=== PATIENT | female | born 1945 | race Caucasian/White ===

== ENCOUNTER 2017-01-13 10:01 | Day surgery (SDC) | payer MEDICARE, OTHER ==
[2017-01-13] MEDS ORDERED: LIDOCAINE 2% MDV (20MG/ML) 20ML VIAL IV ONE (15:31)
[2017-01-13] MEDS ORDERED: FENTANYL PF 100MCG/2ML VIAL IV ONE (15:31)
[2017-01-13] MEDS ORDERED: PROPOFOL 10 MG/ML VIAL IV ONE (15:31)
--- NOTE | 2017-01-16 13:04 | Operative Note ---
DATE OF SURGERY: 01/13/2017 REFERRING PHYSICIAN: Jan Harmon M.D. PROCEDURE: ESOPHAGOGASTRODUODENOSCOPY with multiple biopsies. Surgeon: Fermin Archuleta D.O. Indication: Epigastric pain and prior history of peptic ulcer disease years ago. The patient may also have a component of gastroparesis related to diabetes. Intravenous sedation was administered by the Department of Anesthesiology and included Diprivan titrated to effect. PROCEDURE: Following informed consent from this alert individual, including a discussion of the risks and benefits of the procedure and an opportunity for the patient to ask questions, the patient was in the left lateral decubitus position. The Olympus GIF-180 video endoscope was inserted into the esophagus without resistance. The proximal esophagus had a normal appearance with normal folds and distensibility. The mid-esophagus likewise free from changes. The GE junction revealed a somewhat slightly irregular Z-line but no ulcerations or erosions were seen. Biopsies from this site were taken to rule out the remote possibility of short segment Lawson esophagus. The stomach was entered. There was a small amount of bilious liquid noted within the stomach. There were some mild erosive changes noted in the antrum of the stomach with some small, raised erosions. Biopsies from the stomach were obtained from the antrum and proximal stomach to evaluate for Helicobacter pylori. There were no nila ulcerations seen. Pylorus was patent. Duodenal bulb, sweep and descending duodenum were examined in a serial fashion and found to be normal. The endoscope was then withdrawn back in the body of the stomach. Retroflexion accomplished following air insufflation failed to demonstrate any additional changes. The endoscope was straightened and withdrawn. The patient tolerated the procedure well and was returned to the Recovery Area in stable condition. IMPRESSIONS: 1. Erosive antral gastritis, biopsies taken from the stomach. 2. Slightly irregular Z-line, biopsies taken. RECOMMENDATIONS: The patient will continue on acid blockade therapy which she claims has offered from clinical improvement. Further recommendations might be forthcoming pending results of pathology obtained today. Follow up with all so be with Dr. Harmon. Fermin Archuleta, DO CC: JAN HARMON MD, [facility]
== END 2017-01-13 12:20 | disposition home or self-care (01) ==
LOC: HOP 10:01
PROVIDERS: ATTEND Internal Medicine Gastroenterology
DX: K29.50 Unspecified chronic gastritis without bleeding (principal); K31.89 Other diseases of stomach and duodenum; K20.8 Other esophagitis; I10 Essential (primary) hypertension; I48.92 Unspecified atrial flutter; Z95.0 Presence of cardiac pacemaker
CPT/HCPCS: 43239; 00740; 88305; 88313; J3010

== ENCOUNTER 2017-03-11 14:42 | Observation (INO) | payer MEDICARE, OTHER ==
[2017-03-11] MEDS ORDERED: 0.9 % SODIUM CHLORIDE 1000ML 1,000 ML IV PRN (15:02)
[2017-03-11 16:00] LABS: ANION GAP 14.6 (7-16); BLOOD UREA NITROGEN 14 mg/dL (7-17); CARBON DIOXIDE 23.4 mmol/L (22-30); CREATININE 0.8 mg/dL (0.52-1.04); EST GLOMERULAR FILTRATION RATE > 60 ml/min; GLUCOSE,RANDOM 191 mg/dL (70-110)
[2017-03-11 16:26] LABS: BASO % 0.5 % (0-6); EOS % 3.1 % (0-6); GRAN % 65.5 % (47-80); HEMATOCRIT 42.8 % (35.0-47.0); HEMOGLOBIN 14.9 gm/dl (11.6-16.0); LYMPH % 25.5 % (16-45); MEAN CELL VOLUME 89.5 fl (81-97); MEAN CORPUSCULAR HEMOGLOBIN 31.2 pg (27-33); MEAN CORPUSCULAR HGB CONC 34.8 g/dl (32-36); MEAN PLATELET VOLUME 10.3 fl (7.4-10.4); MONO % 5.4 % (0-9); PLATELET COUNT 221 K/uL (130-400); RED BLOOD COUNT 4.78 M/uL (3.80-5.40); RED CELL DISTRIBUTION WIDTH 13.3 % (11.5-14.5); WHITE BLOOD COUNT W/O DIFF 9.4 K/uL (4.2-12.2)
[2017-03-11] MEDS ORDERED: TEMAZEPAM 15 MG CAPSULE PO PRN (18:02)
[2017-03-11] MEDS ORDERED: ACETAMINOPHEN 500 MG TABLET PO PRN (18:02)
[2017-03-11] MEDS ORDERED: AL HYDROX/MAG HYDROX 30ML UD PO PRN (18:02)
[2017-03-11] MEDS ORDERED: LEVEMIR FLEXTOUCH 100 UNIT/ML INSULIN PEN SQ SCH (22:00)
[2017-03-11] MEDS ORDERED: ATORVASTATIN 20 MG TABLET PO SCH (22:00)
[2017-03-11] MEDS ORDERED: GABAPENTIN 300 MG CAPSULE PO SCH (22:00)
[2017-03-11] MEDS ORDERED: AMLODIPINE BESYLATE 5MG TAB PO SCH (22:00)
[2017-03-11] MEDS: APIXABAN 5MG TABLET PO SCH (22:16)
[2017-03-11] MEDS: METOPROLOL TART 25 MG TABLET PO SCH (22:51)
[2017-03-12] MEDS ORDERED: PANTOPRAZOLE SODIUM 40 MG TABLET PO SCH (07:00)
[2017-03-12] MEDS ORDERED: NOVOLOG FLEXPEN (INSULIN ASPART) 100 UNITS/ML SQ SCH (07:45)
[2017-03-12] MEDS: METOPROLOL TART 25 MG TABLET PO SCH (09:10)
[2017-03-12] MEDS: APIXABAN 5MG TABLET PO SCH (09:10)
[2017-03-12] MEDS ORDERED: HYDROCHLOROTHIAZIDE 12.5 MG CAPSULE PO SCH (10:00)
[2017-03-12] MEDS ORDERED: LISINOPRIL 20 MG TABLET PO SCH (10:00)
--- NOTE | 2017-03-12 10:33 | Discharge Note ---
VTE H&P Assessment - Risk for VTE Risk for VTE: No Risk Level: Moderate Risk Assessment Date: 03/11/17 Risk Assessment Time: 16:15 VTE Orders Placed or Will Be Placed: Yes Discharge Medications - Discharge Medications Prescriptions: Metoprolol Tartrate [Lopressor] 25 mg PO BID #60 tab Home Medications: Ambulatory Orders Insulin Glargine,Hum.rec.anlog [Lantus] 50 units SQ QHS 12/22/14 [Last Taken 09/24] Multivit-Min/FA/Lycopene/Lut [Centrum Silver Tablet] 1 tab PO DAILY 12/22/14 [ Last Taken 07/21/15] Atorvastatin Calcium 40 mg PO QHS 07/22/15 [Last Taken 07/21/15] Apixaban [Eliquis] 5 mg PO BID tab 08/07/16 [Last Taken Unknown] Insulin Aspart [Novolog Flexpen] 10 unit SQ TID pen.injctr 08/07/16 [Last Taken Unknown] Gabapentin [Neurontin] 300 mg PO QHS 12/26/16 [Last Taken Unknown] Lisinopril 20 mg PO DAILY 12/26/16 [Last Taken Unknown] Amlodipine Besylate [Norvasc] 5 mg PO QHS tab 03/12/17 [Last Taken Unknown] Apixaban [Eliquis] 5 mg PO BID tablet 03/12/17 [Last Taken Unknown] Gabapentin [Neurontin] 300 mg PO QHS capsule 03/12/17 [Last Taken Unknown] Insulin Aspart [Novolog Flexpen] 10 unit SQ TIDINS ml 03/12/17 [Last Taken Unknown] Metoprolol Tartrate [Lopressor] 25 mg PO BID #60 tab 03/12/17 [Last Taken Unknown] Discharge Note - Date Date of Discharge Note: 03/12/17 Disposition: Home, Self-Care Condition: (1) Good Additional Instructions: Follow up with Dr. Mariaa jain at [facility] specialty clinic follow up with Dr. Harmon in one to two weeks. Do not restart sotolol
--- NOTE | 2017-03-12 12:54 | History and Physical Report ---
DATE OF ADMISSION: 03/11/2017 CHIEF COMPLAINT: Prolonged QT. HISTORY OF CHIEF COMPLAINT: This 72-year-old female was in Dr. Bisi Cadet's specialty clinic office at [facility] and the QT was prolonged, most likely secondary from medications. His medications were stopped, his sotalol and Rythmol (propafenone). Dr. Bisi Cadet called me and said would I monitor her while she is in observation for 24-48 hours to have her QT come back into the normal range, and I agreed to monitoring her while she was in the hospital in observation. MEDICAL HISTORY: Paroxysmal atrial fibrillation, essential hypertension, present of cardiac pacemaker. She has had a history of a cardiomyopathy which has resolved after her rhythm was controlled. SURGICAL HISTORY: She has had a heart catheter which was showing no coronary artery disease. CURRENT MEDICATIONS: 1. Omeprazole 20 mg daily. 2. Lisinopril/hydrochlorothiazide 20/12.5 once daily. 3. Eliquis 5 mg b.i.d. 4. Lantus 50 units q.h.s. 5. Vitamin D 50,000 units once a week. She finished her last dose of that. 6. Amlodipine 5 mg at h.s. 7. Gabapentin 300 mg at h.s. 8. She uses Humalog 10-12 units before each meal 3 times a day. 9. Atorvastatin 40 mg at h.s. 10. Calcium with vitamin D once a day. 11. Lutein vitamins once a day. 12. Multiple vitamins once a day. 13. Fish oil 1000 mg 1 b.i.d. ALLERGIES: DEMEROL. SOCIAL HISTORY: Former cigarette smoker, quit in 1969. No alcohol or drug use. FAMILY HISTORY: Father and mother have hypertension and grandparents have hypertension. Grandparents have heart disease and diabetes. Stroke for father, mother, and grandparents. SYSTEMS REVIEW: HEENT: No upper respiratory infection symptoms, cough, cold, or congestion. Cardiovascular: See chief complaint. She has had some problems with atrial fibrillation and palpitations in the past but has been much better since she has been on these medications; however, prolonged QT has caused her to be placed in the hospital for observation to adjust her medications. Respiratory: She denies being short of breath, cough, cold, or congestion. Gastrointestinal: No nausea, vomiting, diarrhea, black stools, or bloody stools. Genitourinary: No dysuria, hematuria, frequency, or burning on urination. Musculoskeletal: Moving all 4 extremities. No joint abnormalities. Neurological: No CVA, paralysis, or paresthesias. Endocrine: She has diabetes mellitus, on Lantus insulin and Humalog. Integument: No rash, ulcerative change, or yellow skin. PHYSICAL EXAMINATION: VITAL SIGNS: Height 5 feet 2 inches, weight 172 pounds. Temperature 97.8, pulse 106, blood pressure 125/82, respiratory rate 18, pulse ox 93% on room air. HEENT: Pupils are equal, round, and reactive to light and accommodation. Extraocular movements are intact. Throat is clear. Nose is clear. Tympanic membranes are hauser. NECK: Supple. No jugular venous distention. No hepatojugular reflux. No carotid bruits. Thyroid is smooth. CARDIOVASCULAR: Irregular rate. She has a pacemaker that is firing on the monitor periodically. RESPIRATORY: Clear to auscultation. Breath sounds equal bilaterally. ABDOMEN: Soft, nontender. No hepatosplenomegaly. No tenderness. Bowel sounds are active. No bruits. EXTREMITIES: No pitting edema. No cyanosis, no clubbing. Full range of motion, peripheral pulses good. BREASTS/GYNECOLOGICAL/RECTAL: Exams deferred. NEUROLOGIC: Cranial nerves II-XII intact. No gross defects. Sensation normal, strength normal, deep tendon reflexes equal bilaterally. Babinski negative. MENTAL STATUS: Alert and oriented x3. IMPRESSION: 1. Prolonged QT. 2. Intermittent atrial fibrillation. 3. Diabetes mellitus, on Lantus insulin. 4. Hypertension. 5. Cardiac pacemaker. 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 Stop the sotalol, which Dr. Bisi Cadet has already stopped. Stop the Rythmol. We will add back the metoprolol tartrate 25 mg b.i.d. because her rate is creeping up. It is around 100 mg to 110 mg twice a day. Discussed the case with Dr. Bisi Cadet. She is to follow up with Dr. Bisi Cadet on Friday here at the specialty clinic and he has instructed her when to restart her medications. [facility]
--- NOTE | 2017-03-12 12:55 | Discharge Summary ---
DATE OF ADMISSION: 03-11-2017 DATE OF DISCHARGE: 03/12/2017 ATTENDING PHYSICIAN: Nico Enrique D.O. DISCHARGE DIAGNOSES: 1. Prolonged QT interval. 2. Atrial fibrillation. 3. Cardiac pacemaker. 4. Diabetes mellitus, insulin dependent. 5. Hypertension. REASON FOR HOSPITALIZATION: This 72-year-old female was seen in the cardiac clinic by Dr. Bisi Cadet at [facility]. Her QT length was prolonged to 594. Because of this, Dr. Cadet wanted her admitted to the hospital for cardiac monitoring and stopping and adjusting her medications. She is currently on Eliquis 5 mg b.i.d. and she has had atrial fibrillation on and off. 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 She has had cardiomyopathy with her atrial fibrillation with an ejection fraction that was low which came back up after her rhythm was corrected. Discussed the case with Dr. Bisi Cadet. SIGNIFICANT TESTS: The EKG, as stated, had a QT prolongation of 0.594. The repeat EKG today, the QT has dropped down to 374, calculated QT is 468. She has gone into atrial fibrillation. She has T-wave inversion in IV, V and and currently she feels fine even though she is in atrial fibrillation. No palpitations or symptoms. Cardiac monitoring is showing atrial fibrillation. LABORATORY: WBC was 9400, hemoglobin was 14.9. Potassium was 4.0, sodium was 143, chloride was 105, BUN was 14, creatinine was 0.8. Her sugars running in the reasonable range. Magnesium was 1.8, calcium was 9.4. THERAPY PROVIDED: Cardiac monitoring, observation, IV at [facility]. CONDITION AT DISCHARGE: Improved. Her QT has improved, under 500. We restarted her metoprolol tartrate 25 mg b.i.d. because her heart rate was running 100 to 110. DISCHARGE INSTRUCTIONS: Follow up with Dr. Bisi Cadet on Friday in the Specialty Clinic at [facility]. She is to restart her meds as described by Dr. Bisi Cadet. She is starting her metoprolol tartrate today. She is also starting Rythmol on Friday and seeing Dr. Bisi Cadet on Friday. Any difficulties , return to the emergency department for further evaluation. [facility] [place]
== END 2017-03-12 12:07 | disposition home or self-care (01) ==
LOC: MEDSURG 14:44
PROVIDERS: ADMIT Emergency Medicine; ATTEND Emergency Medicine
DX: I45.81 Long QT syndrome (principal); I48.91 Unspecified atrial fibrillation; Z79.01 Long term (current) use of anticoagulants; E11.9 Type 2 diabetes mellitus without complications; Z79.4 Long term (current) use of insulin; Z95.0 Presence of cardiac pacemaker
CPT/HCPCS: 83735; 85025; 80048; 36416 ×2; 82948 ×2; 93005 ×2; G0378 ×2; J1815 ×2; J3490 ×2

== ENCOUNTER 2017-03-25 12:05 | Day surgery (SDC) | payer MEDICARE, OTHER ==
[2017-03-25 12:44] LABS: BASO % 0.6 % (0-6); GRAN % 59.6 % (47-80); HEMOGLOBIN 15.2 gm/dl (11.6-16.0); LYMPH % 29.1 % (16-45); MEAN CELL VOLUME 91.5 fl (81-97); MEAN CORPUSCULAR HEMOGLOBIN 30.9 pg (27-33); MEAN CORPUSCULAR HGB CONC 33.8 g/dl (32-36); MEAN PLATELET VOLUME 10.5 fl (7.4-10.4); MONO % 7.7 % (0-9); PLATELET COUNT 234 K/uL (130-400); RED BLOOD COUNT 4.92 M/uL (3.80-5.40); RED CELL DISTRIBUTION WIDTH 14.4 % (11.5-14.5); WHITE BLOOD COUNT W/O DIFF 10.5 K/uL (4.2-12.2)
[2017-03-25 12:57] LABS: INR 1.1; PROTHROMBIN TIME (PATIENT) 12.4 SECONDS (9.5-12.1)
[2017-03-25 13:58] LABS: ALB/GLOB RATIO 1.3 (1.1-1.8); ALBUMIN 3.8 gm/dL (3.5-5.0); ALKALINE PHOSPHATASE 89 U/L (38-126); ALT/SGPT 39 U/L (9-52); AST/SGOT 28 U/L (14-36); BLOOD UREA NITROGEN 18 mg/dL (7-17); CREATININE 0.9 mg/dL (0.52-1.04); EST GLOMERULAR FILTRATION RATE > 60 ml/min; GLUCOSE,RANDOM 135 mg/dL (70-110); TOTAL PROTEIN 6.8 gm/dL (6.3-8.2)
[2017-03-25] MEDS ORDERED: SILVER SULFADIAZINE 25 GM CREAM TOP ONE (14:00)
[2017-03-25] MEDS ORDERED: PROPOFOL 10 MG/ML VIAL IV ONE (14:00)
--- NOTE | 2017-04-01 15:50 | Operative Note ---
DATE OF SURGERY: 03/25/2017 Surgeon: Sandor Cadet MD PROCEDURE: Cardioversion report. Indication: Persistent atrial fibrillation. DESCRIPTION OF PROCEDURE: The patient was brought into the cardioversion suite in a fasting state. Defibrillation paddles were applied in the anteroposterior position. Anesthesia was administered, and synchronized direct current of 50 joules of energy was initially used which was unsuccessful and then 100 joules biphasic energy was used which was also unsuccessful. A third attempt with 200 joules of biphasic energy was used and even that was not successful in converting her into sinus rhythm. The patient was hemodynamically stable after the cardioversion and we did not attempt further attempts at cardioverting her. IMPRESSION: Unsuccessful attempt at electrical synchronized cardioversion. The patient will be started on dofetilide in the near future and after she is loaded with the entire medication, we will try to cardiovert her again. The patient will be continued on Eliquis 5 mg b.i.d. for CVA prophylaxis. Sandor Cadet MD CC: TRIXIE ROSALES MD, [facility]
== END 2017-03-25 15:05 | disposition home or self-care (01) ==
LOC: SUR 12:05
PROVIDERS: ATTEND Internal Medicine
DX: I48.1 Persistent atrial fibrillation (principal); I50.32 Chronic diastolic (congestive) heart failure; Z95.0 Presence of cardiac pacemaker
CPT/HCPCS: 36416; 80053; 82948; 83036; 85025; 85610; 93005

== ENCOUNTER 2017-03-29 09:01 | Inpatient (IN) | payer MEDICARE, OTHER ==
[2017-03-29 09:51] LABS: BASO % 0.5 % (0-6); GRAN % 65.2 % (47-80); HEMATOCRIT 42.7 % (35.0-47.0); LYMPH % 23.1 % (16-45); MEAN CORPUSCULAR HEMOGLOBIN 29.9 pg (27-33); MEAN CORPUSCULAR HGB CONC 32.8 g/dl (32-36); MEAN PLATELET VOLUME 10.1 fl (7.4-10.4); MONO % 8.2 % (0-9); PLATELET COUNT 230 K/uL (130-400); RED BLOOD COUNT 4.69 M/uL (3.80-5.40); RED CELL DISTRIBUTION WIDTH 13.6 % (11.5-14.5); WHITE BLOOD COUNT W/O DIFF 8.3 K/uL (4.2-12.2)
[2017-03-29 10:00] LABS: ANION GAP 11.1 (7-16); BLOOD UREA NITROGEN 15 mg/dL (7-17); CARBON DIOXIDE 23.9 mmol/L (22-30); CREATININE 0.8 mg/dL (0.52-1.04); EST GLOMERULAR FILTRATION RATE > 60 ml/min; GLUCOSE,RANDOM 297 mg/dL (70-110)
[2017-03-29] MEDS ORDERED: DOFETILIDE 500 MCG PO SCH (10:00)
--- NOTE | 2017-03-29 11:43 | History & Physical ---
History of Present Illness - Date of Service Date of Service for History & Physical: 03/30/17 - History of Present Illness Admitting Diagnosis: Atrial Fibrillation with Tikosyn trial History of Present Illness: 72 yo female admitted w/ cc of symptomatic atrial fibrillation. PMHx of afib, presence of cardiac pacemaker, diastolic HF, essential htn, arrhythmia sinus bradycardia, type 2 diabetes, peripheral neuropathy, GERD, and asthma. Patient admitted to the floor by Dr. Cadet cardiology for monitoring w/ anti arrhythmic initiation. Patient will be started on Tikosyn w/ plan for cardioversion on Friday with Dr. Cadet. CBC, CMP, magnesium level ordered. Patient placed on Telemetry w/ EKG prior to Tikosyn initiation. Patient placed for further medical management. PCP: Dr. Harmon 03/30/17: pt lying in bed comfortably. she denies any cp, sob, dizziness or lightheadedness. slight headache she believes is related to lack of sleep. Normal PO intake. Normal GI/ function. No additional concerns at this time. Dr Cadet has been working with the nurses to dose pt's Tikosyn appropriately. Review of Systems Constitutional: Denies: Chills, Fever, Weakness Respiratory: Denies: Cough, Dyspnea, Wheezes Cardiovascular: Reports: Dyspnea on exertion. Denies: Chest pain, Edema, Palpitations Endocrine: Denies: Fatigue Gastrointestinal: Denies: Abdominal pain, Diarrhea, Hematochezia, Nausea, Vomiting Skin: Denies: Change in color, Rash Neurological: Denies: Confusion, Headache, Weakness Psychiatric: Denies: Anxiety, Depression Hematological/Lymphatic: Denies: Anemia, Easy bruising Past Medical History - SOCIAL HISTORY Smoking Status: Former smoker - RESPIRATORY Hx Respiratory Disorders: Yes Hx Asthma: Yes (good control with meds) Hx Pneumonia: Yes Hx Sleep Apnea: Yes Hx of CPAP: Yes - CARDIOVASCULAR Hx Cardio Disorders: Yes Hx Abnormal EKG: Yes Hx Cardiac Cath: Yes (18 months ago) Hx CHF: Yes Hx Edema: Yes (feet/ankles right worse in PM) Hx Hypertension: Yes Hx Irregular Heartbeat: Yes (h/o afib) Hx Palpitations: Yes (per pt for 3 years) Hx Pacemaker/Defib: Yes (-2015) 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 - NEURO Hx Neuro Disorders: Yes Hx Headaches: Yes Hx Neuropathy: Yes (leg neuropathy- Gabapentin helps) Comment:: balance issues due to familiar tremors in body - GI Hx GI Disorders: Yes Hx Reflux: Yes Hx Ulcer: Yes (duodenal ulcer; in 20s) Hx Wt Loss/Wt Gain: Yes (23 lbs loss-dieting over last year) Hx of Polyps: Yes Comment:: hx ibs and constipation - Hx Genitourinary Disorders: Yes Hx Kidney Stones: Yes Comment:: post menopausal - ENDOCRINE Hx Endocrine Disorders: Yes Hx Diabetes: Yes (insulin dependent) Hx Thyroid Disease: No Comment:: fbs 130 - MUSCULOSKELETAL Hx Musculoskeletal Disorders: Yes Hx Arthritis: Yes Hx Osteoporosis: Yes - PSYCH Hx Psych Problems: Yes Hx Anxiety: Yes (due to illness) - HEMATOLOGY/ONCOLOGY Hx Hematology/Oncology Disorders: Yes Hx Anemia: Yes (younger age) Hx Bruising: Yes (on blood thinner) Comment:: on Eliquis for past 4 months. Family Medical History Hx Alcohol Use: Children Hx Anxiety: Children Hx Cancer: Children Hx Depression: Children Hx Diabetes: Grandparents Hx Heart Disease: Grandparents Hx HTN: Father, Mother, Grandparents Hx Resp Disorders: Father, Grandparents Hx Stroke: Father, Mother, Grandparents H&P Meds/Allergies - Allergies Allergies: Allergies Allergy/AdvReac Type Severity Reaction Status Date / Time meperidine Allergy Unknown PT UNSURE Verified 12/26/16 15:18 OF REACTION Opioids-Meperidine and Allergy Unknown PT UNSURE Verified 12/26/16 15:18 Related OF REACTION [Opioids-Meperidine & Related] - Home Medications Home Medications Medication Instructions Recorded Confirmed Last Taken Insulin Glargine,Hum.rec.anlog 50 units SQ QHS 12/22/14 03/29/17 07/21/15 [Lantus] Multivit-Min/FA/Lycopene/Lut 1 tab PO DAILY 12/22/14 03/29/17 07/21/15 [Centrum Silver Tablet] Atorvastatin Calcium 40 mg PO QHS 07/22/15 03/29/17 07/21/15 Gabapentin [Neurontin] 300 mg PO QHS 12/26/16 03/29/17 Unknown Apixaban [Eliquis] 5 mg PO DAILY 03/29/17 03/29/17 Unknown Lisinopril/Hydrochlorothiazide 1 tab PO DAILY 03/29/17 03/29/17 Unknown [Lisinopril-Hctz 20-12.5 mg Tab] Metoprolol Tartrate [Lopressor] 50 mg PO BID 03/29/17 03/29/17 Unknown Omeprazole [Prilosec] 20 mg PO DAILY 03/29/17 03/29/17 Unknown Previous Rx's Medication Instructions Recorded Insulin Aspart [Novolog Flexpen] 10 unit SQ TIDINS ml 03/12/17 - Active Medications Active Medications: Current Medications Apixaban (Eliquis) 5 mg PO BID [facility] Atorvastatin Calcium (Lipitor) 40 mg PO QHS [facility] Dofetilide (Tikosyn) 500 mcg PO Q12H [facility] Last Admin: 03/29/17 10:44 Dose: 500 mcg Gabapentin (Neurontin) 300 mg PO 1900 [facility] Hydrochlorothiazide (Hctz 12.5mg) 12.5 mg PO DAILY [facility] Lisinopril (Zestril) 20 mg PO DAILY [facility] Metoprolol Tartrate (Lopressor) 50 mg PO BID [facility] Pantoprazole Sodium (Protonix) 40 mg PO DAILYAC [facility] Patient Own Med: (Lantus Vial) 50 each SC QHS [facility] Patient Own Med: (Humalog Kwikpen) 0 each SC TIDINS [facility] PRN Reason: Protocol Results - Labs Result Diagrams: 03/29/17 09:26 03/29/17 09:26 Labs Last 24 Hours: Laboratory Results - last 24 hr 03/29/17 03/29/17 03/29/17 09:26 09:26 09:43 WBC 8.3 RBC 4.69 Hgb 14.0 Hct 42.7 MCV 91.0 MCH 29.9 MCHC 32.8 RDW 13.6 Plt Count 230 MPV 10.1 Gran % 65.2 Lymphocytes % 23.1 Monocytes % 8.2 Eosinophils % 3.0 Basophils % 0.5 Sodium 137 Potassium 4.1 Chloride 102 Carbon Dioxide 23.9 Anion Gap 11.1 BUN 15 Creatinine 0.8 Estimated GFR > 60 Random Glucose 297 H Calcium 8.9 Magnesium 1.5 L VTE H&P Assessment - Risk for VTE Risk for VTE: Yes Risk Level: High Risk Assessment Date: 03/29/17 Risk Assessment Time: 10:00 VTE Orders Placed or Will Be Placed: Yes Plan - Inpatient Certification Inpatient Certification: Admit to inpatient care: Based on my medical assessment, after consideration of patient's risk factors (age, co-morbidities and patient presenting symptoms and acuity), I expect that this patient will remain in the hospital greater than or equal to two midnights and that the services needed warrant inpatient care because: Patient Risk Factors: [CHF, symptomatic afib, arrhythma, cardiomyopathy] Estimated length of stay: [3-4 nights] The patient may reasonably be expected to be discharged or transferred to a hospital within 96 hours after admission to [facility]. Services needed: [close cardiac monitoring, initiation of new po medication, telemetry, labs, ekg, vital signs regularly] Post hospital care (if known): [home, self care] I certify that my determination is in accordance with my understanding of Medicare requirements for reasonable and necessary inpatient services. 03/29/17 11:48 - Detailed Diagnosis and Plan (1) Atrial fibrillation with rapid ventricular response Current Visit: No Status: Acute Base Code: I48.91 - UNSPECIFIED ATRIAL FIBRILLATION Comment: 03/30/17: 72 yo female admitted with symptomatic atrial fibrillation. - initiate Tikosyn as requested by Dr. Cadet - plan for cardioversion Friday. - PBC, renal function, magnesium level - EKG prior to medications and 2 hours after each dose - vital signs q 15 minutes x 1 hours, then q 2 hours - if Qtc > 500 msec, contact Dr. Cadet immediately - telemetry - monitor for any cp, dizziness, heart palpitations, sob (2) DVT prophylaxis Current Visit: Yes Status: Acute Base Code: [id number] - Comment: 03/30/17: high risk (age, decreased mobility, atrial fib) - continue Eliquis 5 mg po daily (3) Full code status Current Visit: Yes Status: Acute Base Code: Z78.9 - OTHER SPECIFIED HEALTH STATUS Comment: 03/30/17: pt is full code (4) Diabetes Current Visit: Yes Status: Acute Base Code: E11.9 - TYPE 2 DIABETES MELLITUS WITHOUT COMPLICATIONS Comment: 03/30/17: continue home medications. accu check achqs
[2017-03-29] MEDS: PATIENT OWN MED: HUMALOG KWIKPEN SC SCH ×2 (12:33→17:38)
[2017-03-29] MEDS ORDERED: MAGNESIUM SULFATE 16 MEQ in 0.9 % SODIUM CHLORIDE 100ML 100 ML IV ONE (13:30)
[2017-03-29] MEDS: GABAPENTIN 300 MG CAPSULE PO SCH (19:01)
[2017-03-29] MEDS: APIXABAN 5MG TABLET PO SCH (22:26)
[2017-03-29] MEDS: METOPROLOL TART 50 MG TABLET PO SCH (22:26)
[2017-03-29] MEDS: ATORVASTATIN 20 MG TABLET PO SCH (22:26)
[2017-03-29] MEDS: DOFETILIDE 500 MCG PO SCH (22:27)
[2017-03-29] MEDS: LANTUS SC SCH (22:27)
[2017-03-30] MEDS: PANTOPRAZOLE SODIUM 40 MG TABLET PO SCH (06:45)
[2017-03-30] MEDS: PATIENT OWN MED: HUMALOG KWIKPEN SC SCH ×3 (08:08→17:28)
[2017-03-30] MEDS: HYDROCHLOROTHIAZIDE 12.5 MG CAPSULE PO SCH (09:56)
[2017-03-30] MEDS: APIXABAN 5MG TABLET PO SCH ×2 (09:56→22:07)
[2017-03-30] MEDS: METOPROLOL TART 50 MG TABLET PO SCH ×2 (09:56→22:07)
[2017-03-30] MEDS: LISINOPRIL 20 MG TABLET PO SCH (09:56)
[2017-03-30] MEDS: DOFETILIDE 500 MCG PO SCH ×4 (10:08→22:05)
[2017-03-30] MEDS ORDERED: ACETAMINOPHEN 500 MG TABLET PO PRN (18:03)
[2017-03-30] MEDS: GABAPENTIN 300 MG CAPSULE PO SCH (18:16)
[2017-03-30] MEDS: ATORVASTATIN 20 MG TABLET PO SCH (22:06)
[2017-03-30] MEDS: LANTUS SC SCH (22:12)
[2017-03-31 06:18] LABS: ANION GAP 6.1 (7-16); BLOOD UREA NITROGEN 16 mg/dL (7-17); CARBON DIOXIDE 26.9 mmol/L (22-30); CREATININE 0.8 mg/dL (0.52-1.04); EST GLOMERULAR FILTRATION RATE > 60 ml/min; GLUCOSE,RANDOM 153 mg/dL (70-110)
[2017-03-31] MEDS: PANTOPRAZOLE SODIUM 40 MG TABLET PO SCH (07:01)
[2017-03-31] MEDS: PATIENT OWN MED: HUMALOG KWIKPEN SC SCH ×3 (08:02→17:20)
[2017-03-31] MEDS: HYDROCHLOROTHIAZIDE 12.5 MG CAPSULE PO SCH (09:49)
[2017-03-31] MEDS: APIXABAN 5MG TABLET PO SCH ×2 (09:49→22:23)
[2017-03-31] MEDS: METOPROLOL TART 50 MG TABLET PO SCH ×2 (09:50→22:23)
[2017-03-31] MEDS: DOFETILIDE 500 MCG PO SCH ×2 (09:51→22:18)
[2017-03-31] MEDS: LISINOPRIL 20 MG TABLET PO SCH (09:52)
--- NOTE | 2017-03-31 17:24 | Physician Progress Note ---
Subjective - Date Date of Physician Progress Note: 03/31/17 - Subjective Subjective Comment: lying in bed comfortably w/ a friend at bedside. States she slept better last night. She noticed on her monitor that she converted back in to afib. denies CP, SOB, heart palpitations, nausea, headache or dizziness. tolerating meals. normal /GI function. Objective - Vital Signs Vital Signs: Vital Signs - Last 24 Hrs Temp Pulse Resp BP Pulse Ox 03/31/17 17:05 98.3 F 72 16 105/76 97 03/31/17 14:00 98.6 F 89 16 119/59 97 03/31/17 08:12 90 16 03/31/17 07:47 97.9 F 90 16 123/86 98 03/31/17 06:00 97.5 F L 79 18 121/61 97 03/30/17 18:01 97.5 F L 75 16 138/91 98 - General General Appearance: Alert, Oriented x3, Cooperative, No acute distress - Head Head exam: Atraumatic, Normocephalic - Eye Eye exam: Normal appearance Pupils: Normal accommodation - ENT ENT exam: Normal exam Ear exam: Normal external inspection Mouth exam: Normal external inspection - Neck Neck exam: Normal inspection - Respiratory Respiratory exam: Normal lung sounds bilaterally - Cardiovascular Cardiovascular Exam: Irregular rhythm, Tachycardia (murmur present, faint) - GI/Abdominal GI/Abdominal exam: Soft, Normal bowel sounds - Rectal Rectal exam: Deferred - exam: Deferred - Extremities Extremities exam: negative: Pedal edema - Neurological Neurological exam: Alert, Normal gait, Oriented X3. negative: Abnormal gait - Psychiatric Psychiatric exam: Normal affect, Normal mood. negative: Agitated, Anxious Assessment and Plan - Assessment and Plan (1) Atrial fibrillation with rapid ventricular response Current Visit: No Status: Acute Base Code: I48.91 - UNSPECIFIED ATRIAL FIBRILLATION Comment: 03/31/17: 72 yo female admitted with symptomatic atrial fibrillation. Patient started on Tikosyn 03/29/[address] Cadet. Converted to NSR 03/30/17 around 1 am. Patient converted back to afib 03/31/17. She denies CP, SOB, headache, dizziness or heart palpitations. - Continue Tikosyn dosing as ordered by Dr. Cadet - EKG 2 hours after each dose. - monitor magnesium level - vital signs q 2 hours - if Qtc > 500 msec, contact Dr. Cadet immediately - telemetry - monitor for any cp, dizziness, heart palpitations, sob (2) DVT prophylaxis Current Visit: Yes Status: Acute Base Code: [id number] - Comment: 03/31/17: high risk (age, decreased mobility, atrial fib) - continue Eliquis 5 mg po daily (3) Full code status Current Visit: Yes Status: Acute Base Code: Z78.9 - OTHER SPECIFIED HEALTH STATUS Comment: 03/31/17: pt is full code (4) Diabetes Current Visit: Yes Status: Acute Base Code: E11.9 - TYPE 2 DIABETES MELLITUS WITHOUT COMPLICATIONS Comment: 03/31/17: continue home medications. accu check achqs Results - Labs Result Diagrams: 03/29/17 09:26 03/31/17 06:00 Labs Last 24 Hours: Laboratory Results - last 24 hr 03/30/17 03/30/17 03/31/17 17:15 22:00 06:00 Sodium 140 Potassium 3.9 Chloride 107 Carbon Dioxide 26.9 Anion Gap 6.1 L BUN 16 Creatinine 0.8 Estimated GFR > 60 POC Glucose 103 204 H Random Glucose 153 H Calcium 9.2 Magnesium 1.7 03/31/17 11:35 Sodium Potassium Chloride Carbon Dioxide Anion Gap BUN Creatinine Estimated GFR POC Glucose 277 H Random Glucose Calcium Magnesium DVT/PE Assessment - Risk for VTE Risk for VTE: No Risk Level: High Risk Assessment Date: 03/29/17 Risk Assessment Time: 10:00 VTE Orders Placed or Will Be Placed: Yes - Active Medicaitons Current Medications: Current Medications Acetaminophen (Tylenol 500mg Tab) 1,000 mg PO Q8H PRN PRN Reason: Pain - General Last Admin: 03/30/17 18:14 Dose: 1,000 mg Apixaban (Eliquis) 5 mg PO BID [facility] Last Admin: 03/31/17 09:49 Dose: 5 mg Atorvastatin Calcium (Lipitor) 40 mg PO QHS [facility] Last Admin: 03/30/17 22:06 Dose: 40 mg Dofetilide (Tikosyn) 125 mcg PO Q12H [facility] Last Admin: 03/31/17 09:51 Dose: 125 mcg Gabapentin (Neurontin) 300 mg PO 1900 [facility] Last Admin: 03/30/17 18:16 Dose: 300 mg Hydrochlorothiazide (Hctz 12.5mg) 12.5 mg PO DAILY [facility] Last Admin: 03/31/17 09:49 Dose: 12.5 mg Lisinopril (Zestril) 20 mg PO DAILY [facility] Last Admin: 03/31/17 09:52 Dose: 20 mg Metoprolol Tartrate (Lopressor) 50 mg PO BID [facility] Last Admin: 03/31/17 09:50 Dose: 50 mg [facility] Last Admin: 03/31/17 07:01 Dose: 40 mg Patient Own Med: (Lantus Vial) 50 each SC QHS [facility] Last Admin: 03/30/17 22:12 Dose: 50 each Patient Own Med: (Humalog Kwikpen) 0 each SC TIDINS [facility] PRN Reason: Protocol Last Admin: 03/31/17 11:53 Dose: 12 each AMI Plan - Labs Result Diagrams: 03/29/17 09:26 03/31/17 06:00
[2017-03-31] MEDS: GABAPENTIN 300 MG CAPSULE PO SCH (18:56)
[2017-03-31] MEDS: LANTUS SC SCH (22:18)
[2017-03-31] MEDS: ATORVASTATIN 20 MG TABLET PO SCH (22:23)
[2017-04-01] MEDS: PATIENT OWN MED: HUMALOG KWIKPEN SC SCH ×2 (07:54→12:05)
[2017-04-01] MEDS: METOPROLOL TART 50 MG TABLET PO SCH (09:38)
[2017-04-01] MEDS: PANTOPRAZOLE SODIUM 40 MG TABLET PO SCH (09:39)
[2017-04-01] MEDS: APIXABAN 5MG TABLET PO SCH (09:39)
[2017-04-01] MEDS: HYDROCHLOROTHIAZIDE 12.5 MG CAPSULE PO SCH (09:39)
[2017-04-01] MEDS: LISINOPRIL 20 MG TABLET PO SCH (09:39)
[2017-04-01] MEDS: DOFETILIDE 500 MCG PO SCH (09:39)
[2017-04-01 12:52] LABS: INR 1.01; PROTHROMBIN TIME (PATIENT) 11.4 SECONDS (9.5-12.1)
[2017-04-01] MEDS ORDERED: PROPOFOL 10 MG/ML VIAL IV ONE (14:54)
[2017-04-01] MEDS ORDERED: LIDOCAINE 2% MDV (20MG/ML) 20ML VIAL IV ONE (14:54)
--- NOTE | 2017-04-01 14:54 | Discharge Summary ---
Providers Discharge Summary Date: 04/01/17 Date of admission: 03/29/17 09:01 Expected Date of Discharge: 04/01/17 Attending physician: FABY CHRISTENSEN Primary care physician: Jan Harmon Physical Exam - Vital Signs Vital Signs: Vital Signs - Last 24 Hrs Temp Pulse Pulse Resp BP Pulse Ox 04/01/17 14:23 97.3 F L 86 18 123/80 95 04/01/17 08:50 72 18 04/01/17 08:05 98.7 F 72 18 127/74 96 04/01/17 06:00 97.7 F 77 18 123/89 98 04/01/17 00:00 97.8 F 74 18 130/66 98 03/31/17 22:00 97.9 F 75 18 151/81 97 03/31/17 17:05 98.3 F 72 16 105/76 97 - General General Appearance: Alert, Oriented x3, Cooperative, No acute distress - Head Head exam: Atraumatic, Normocephalic - Eye Eye exam: Normal appearance Pupils: Normal accommodation - ENT ENT exam: Normal exam Ear exam: Normal external inspection Mouth exam: Normal external inspection - Neck Neck exam: Normal inspection - Respiratory Respiratory exam: Normal lung sounds bilaterally - Cardiovascular Cardiovascular Exam: Irregular rhythm (murmur present, faint), Tachycardia Peripheral Pulses: 2+: Dorsalis Pedis (R), Dorsalis Pedis (L) - GI/Abdominal GI/Abdominal exam: Soft, Normal bowel sounds - Rectal Rectal exam: Deferred - exam: Deferred - Extremities Extremities exam: Normal inspection. negative: Pedal edema - Neurological Neurological exam: Alert, Normal gait, Oriented X3. negative: Abnormal gait - Psychiatric Psychiatric exam: Normal affect, Normal mood. negative: Agitated, Anxious Hospitalization - Hospitalization Admission Diagnosis: Atrial Fibrillation with Tikosyn trial - Problem List/Discharge Diagnosis (1) Atrial fibrillation with rapid ventricular response Current Visit: No Status: Acute Base Code: I48.91 - UNSPECIFIED ATRIAL FIBRILLATION Comment: 04/01/17: 72 yo female admitted with symptomatic atrial fibrillation. Patient started on Tikosyn 03/29/[address] Cadet. Has converted to NSR and back to a-fib several times during this admission. She denies CP, SOB, headache, dizziness or heart palpitations. - Cardioversion by Dr Cadet 04/01 unsuccessful - Will DC home on Amiodarone 200mg QD, DC Tikosyn - monitor for any cp, dizziness, heart palpitations, sob and return to ED if occurs - F/u Dr Cadet 1-2 weeks - F/u PCP 1-2 weeks (2) Diabetes Current Visit: Yes Status: Acute Base Code: E11.9 - TYPE 2 DIABETES MELLITUS WITHOUT COMPLICATIONS Comment: 04/01/17: continue home medications. (3) Full code status Current Visit: Yes Status: Acute Base Code: Z78.9 - OTHER SPECIFIED HEALTH STATUS Comment: 04/01/17: pt is full code (4) DVT prophylaxis Current Visit: Yes Status: Acute Base Code: [id number] - Comment: 04/01/17: high risk (age, decreased mobility, atrial fib) - continue Eliquis 5 mg po daily - Hospitalization Course Disposition: Home, Self-Care Hospital Course: 72 yo female admitted w/ cc of symptomatic atrial fibrillation. PMHx of afib, presence of cardiac pacemaker, diastolic HF, essential htn, arrhythmia sinus bradycardia, type 2 diabetes, peripheral neuropathy, GERD, and asthma. Patient admitted to the floor by Dr. Cadet cardiology for monitoring w/ anti arrhythmic initiation. Patient will be started on Tikosyn w/ plan for cardioversion on Friday with Dr. Cadet. CBC, CMP, magnesium level ordered. Patient placed on Telemetry w/ EKG prior to Tikosyn initiation. Patient placed for further medical management. PCP: Dr. Harmon 03/30/17: pt lying in bed comfortably. she denies any cp, sob, dizziness or lightheadedness. slight headache she believes is related to lack of sleep. Normal PO intake. Normal GI/ function. No additional concerns at this time. Dr Cadet has been working with the nurses to dose pt's Tikosyn appropriately. Procedures: Cardiology Procedures 03/29/17 09:23 EKG NOW 03/29/17 09:50 Telemetry [Back Facer] .Continuous 03/29/17 12:40 EKG ONCE 03/29/17 21:00 EKG ONCE 03/30/17 00:30 EKG ONCE 03/30/17 08:00 EKG ONCE 03/30/17 12:10 EKG ONCE 03/31/17 00:15 EKG ONCE 03/31/17 12:00 EKG ONCE 04/01/17 00:15 EKG ONCE 04/01/17 12:00 EKG ONCE Abnormal Labs: Abnormal Lab Results 03/29/17 03/29/17 03/29/17 Range/Units 09:26 09:43 12:00 Anion Gap (7-16) POC Glucose 151 H (70-110) mg/dL Random Glucose 297 H (70-110) mg/dL Magnesium 1.5 L (1.6-2.3) mg/dL 03/29/17 03/30/17 03/30/17 Range/Units 17:41 07:30 11:40 Anion Gap (7-16) POC Glucose 158 H 116 H 195 H (70-110) mg/dL Random Glucose (70-110) mg/dL Magnesium (1.6-2.3) mg/dL 03/30/17 03/31/17 03/31/17 Range/Units 22:00 06:00 11:35 Anion Gap 6.1 L (7-16) POC Glucose 204 H 277 H (70-110) mg/dL Random Glucose 153 H (70-110) mg/dL Magnesium (1.6-2.3) mg/dL 03/31/17 03/31/17 04/01/17 Range/Units 16:58 22:00 07:40 Anion Gap (7-16) POC Glucose 182 H 127 H 143 H (70-110) mg/dL Random Glucose (70-110) mg/dL Magnesium (1.6-2.3) mg/dL 04/01/17 Range/Units 11:30 Anion Gap (7-16) POC Glucose 144 H (70-110) mg/dL Random Glucose (70-110) mg/dL Magnesium (1.6-2.3) mg/dL Discharge Medications - Discharge Medications Prescriptions: Amiodarone HCl [Pacerone] 200 mg PO DAILY #30 tablet Home Medications: Ambulatory Orders Insulin Glargine,Hum.rec.anlog [Lantus] 50 units SQ QHS 12/22/14 [Last Taken 09/24] Multivit-Min/FA/Lycopene/Lut [Centrum Silver Tablet] 1 tab PO DAILY 12/22/14 [ Last Taken 07/21/15] Atorvastatin Calcium 40 mg PO QHS 07/22/15 [Last Taken 07/21/15] Gabapentin [Neurontin] 300 mg PO QHS 12/26/16 [Last Taken Unknown] Insulin Aspart [Novolog Flexpen] 10 unit SQ TIDINS ml 03/12/17 [Last Taken Unknown] Apixaban [Eliquis] 5 mg PO DAILY 03/29/17 [Last Taken Unknown] Lisinopril/Hydrochlorothiazide [Lisinopril-Hctz 20-12.5 mg Tab] 1 tab PO DAILY 03/29/17 [Last Taken Unknown] Metoprolol Tartrate [Lopressor] 50 mg PO BID 03/29/17 [Last Taken Unknown] Omeprazole [Prilosec] 20 mg PO DAILY 03/29/17 [Last Taken Unknown] Amiodarone HCl [Pacerone] 200 mg PO DAILY #30 tablet 04/01/17 [Last Taken Unknown] Discharge Plan - Discharge Instructions Activity at Discharge: Increase Activity as Tolerated Diet at Discharge: Advance to Usual Diet Instructions: Amiodarone (By mouth), Atrial Fibrillation (DC), Cardioversion ( DC) Additional Instructions: - follow up Dr Cadet 1-2 weeks - begin Amiodarone tomorrow 04/02/17
--- NOTE | 2017-04-03 16:45 | Operative Note ---
DATE OF SURGERY: 04/01/2017 PRIMARY CARE PHYSICIAN: Jan Harmon MD Operating Physician: Sandor Cadet MD Indication: Recurrent persistent atrial fibrillation. PROCEDURE: The patient was brought to the cardioversion room in a fasting state. Defibrillation pads were applied in the anteroposterior position. Anesthesia was administered. A synchronized direct current of 100 joules energy was initially used, which was successful only for a few seconds and the patient went back into AFib. We tried a second time with 150 joules of biphasic energy. This time the patient stayed in sinus rhythm only for 10 seconds and went back into atrial fibrillation. We did not attempt a third time. IMPRESSION: Unsuccessful direct current supported cardioversion with 100 joules and then 150 joules of biphasic energy. We also interrogated the patient's pacemaker and changed the underlying atrial pacing rate to 75 beats per minute to suppress atrial fibrillation. I am planning to switch her to amiodarone and we will attempt another cardioversion in a month and we will also consider AFib ablation down the road as well. Sandor Cadet MD MTDD
== END 2017-04-01 15:30 | disposition home or self-care (01) | DRG 309 ==
LOC: MEDSURG 09:01
PROVIDERS: ADMIT Family Medicine; ATTEND Family Medicine
PROC: 5A2204Z Restoration of Cardiac Rhythm, Single (ICD-10-PCS; principal; 2017-04-01 13:05)
DX: I48.1 Persistent atrial fibrillation (principal); I50.32 Chronic diastolic (congestive) heart failure; E11.9 Type 2 diabetes mellitus without complications; Z78.9 Other specified health status; Z95.0 Presence of cardiac pacemaker; I10 Essential (primary) hypertension; E11.42 Type 2 diabetes mellitus with diabetic polyneuropathy; Z79.4 Long term (current) use of insulin; Z79.01 Long term (current) use of anticoagulants; I42.9 Cardiomyopathy, unspecified
CPT/HCPCS: 36416; 80048; 82948; 83735; 85025; 85610; 93005; 99223; 99233; 99239

== ENCOUNTER 2017-11-23 11:47 | Emergency (ER) | payer MEDICARE, OTHER ==
--- NOTE | 2017-11-23 12:13 | Emergency Department Record ---
History of Present Illness - General Chief Complaint: Cough Stated Complaint: COUGH Time Seen by Provider: 11/23/17 12:05 Source: Patient Mode of Arrival: Ambulatory Limitations: No limitations - History of Present Illness Initial Comments: The patient is here due to a cough, runny nose, mild ST and body aches for 4 days. MD Complaint: Cough, Nasal congestion, Rhinorrhea Onset/Timin -: Days(s) Severity: Mild Severity scale (1-10): 6 Consistency: Constant - Related Data Home Medications Medication Instructions Recorded Confirmed Last Taken Amiodarone HCl [Pacerone] 100 mg PO DAILY 11/23/17 11/23/17 Unknown Previous Rx's Medication Instructions Recorded Insulin Aspart [Novolog Flexpen] 10 unit SQ TIDINS ml 03/12/17 Benzonatate [Tessalon Perle] 100 mg PO TID #15 capsule 11/23/17 Doxycycline Monohydrate [Mondoxyne 100 mg PO BID #14 capsule 11/23/17 Nl] Allergies Allergy/AdvReac Type Severity Reaction Status Date / Time meperidine Allergy Unknown PT UNSURE Verified 12/26/16 15:18 OF REACTION Opioids-Meperidine and Allergy Unknown PT UNSURE Verified 12/26/16 15:18 Related OF REACTION [Opioids-Meperidine & Related] Travel Screening - Travel/Exposure Within Last 30 Days Have you traveled within the last 30 days?: No Review of Systems Constitutional: Reports: Malaise. Denies: Chills, Fever Eyes: Denies: Eye discharge ENT: Reports: Congestion Respiratory: Reports: Cough. 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 - NEURO Hx Neuro Disorders: Yes Hx Headaches: Yes Hx Neuropathy: Yes (leg neuropathy- Gabapentin helps) Comment:: balance issues due to familiar tremors in body - GI Hx GI Disorders: Yes Hx Reflux: Yes Hx Ulcer: Yes (duodenal ulcer; in 20s) Hx Wt Loss/Wt Gain: Yes (23 lbs loss-dieting over last year) Hx of Polyps: Yes Comment:: hx ibs and constipation - Hx Genitourinary Disorders: Yes Hx Kidney Stones: Yes Comment:: post menopausal - ENDOCRINE Hx Endocrine Disorders: Yes Hx Diabetes: Yes (insulin dependent) Hx Thyroid Disease: No Comment:: fbs 130 - MUSCULOSKELETAL Hx Musculoskeletal Disorders: Yes Hx Arthritis: Yes Hx Osteoporosis: Yes - PSYCH Hx Psych Problems: Yes Hx Anxiety: Yes (due to illness) - HEMATOLOGY/ONCOLOGY Hx Hematology/Oncology Disorders: Yes Hx Anemia: Yes (younger age) Hx Bruising: Yes (on blood thinner) Comment:: on Eliquis for past 4 months. Family Medical History Any Significant Family History?: Yes Hx Alcohol Use: Children Hx Anxiety: Children Hx Cancer: Children Hx Depression: Children Hx Diabetes: Grandparents Hx Heart Disease: Grandparents Hx HTN: Father, Mother, Grandparents Hx Resp Disorders: Father, Grandparents Hx Stroke: Father, Mother, Grandparents Physical Exam - General General Appearance: Alert, Oriented x3, Cooperative, No acute distress - Head Head exam: Atraumatic, Normocephalic, Normal inspection - Eye Eye exam: Normal appearance, PERRL - ENT Throat exam: Tonsillar erythema (mild.). negative: Normal inspection, Tonsillar exudate - Neck Neck exam: Normal inspection, Full ROM. negative: Tenderness - Respiratory Respiratory exam: Normal lung sounds bilaterally. negative: Respiratory distress - Cardiovascular Cardiovascular Exam: Regular rate, Normal rhythm, Normal heart sounds - GI/Abdominal GI/Abdominal exam: Soft, Normal bowel sounds. negative: Tenderness Course Vital Signs 11/23/17 11:58 Temperature 99.1 F Pulse Rate 107 H Respiratory 12 Rate Blood Pressure 170/102 Pulse Ox 98 - Reevaluation(s) Reevaluation #1: I did discuss the results with the patient and the need for F/U this week if not better. 11/23/17 13:01 Medical Decision Making - Data Complexity MDM Data: Labs Ordered and/or Reviewed (Flu: Neg), X-Ray Ordered and/or Reviewed - Radiology Data Radiology results: Report reviewed (CXR: Neg.) Disposition Disposition: Discharge Clinical Impression: Upper respiratory infection, acute Disposition: Home, Self-Care Condition: (2) Stable Instructions: Upper Respiratory Infection (ED) Additional Instructions: Please take the Doxycycline as directed and use Tessalon for the cough. Please see your PCP this week for recheck if not better and return to the ER for any worsening symptoms. Prescriptions: Benzonatate [Tessalon Perle] 100 mg PO TID #15 capsule Doxycycline Monohydrate [Mondoxyne Nl] 100 mg PO BID #14 capsule Forms: Patient Portal Access Time of Disposition: 13:03 Quality - Quality Measures Quality Measures: N/A - Blood Pressure Screening View Details: Yes Does Patient Have Any of the Following: No, Active Dx of HTN Blood Pressure Classification: Hypertensive Reading Systolic Measurement: 170 Diastolic Measurement: 102 Screening for High Blood Pressure: Patient Exclusion, Hx of HTN [G9744]
[2017-11-23 12:38] LABS: INFLUENZA A NEGATIVE (NEGATIVE); INFLUENZA B NEGATIVE (NEGATIVE)
--- NOTE | 2017-11-24 08:41 | RADIOLOGY REPORT ---
EXAM: CHEST, TWO VIEWS HISTORY: COUGH FOR FOUR DAYS. TECHNIQUE: Upright PA and lateral views of the chest were obtained. Comparison: Two view chest radiographic examination dated 05/05/15. FINDINGS: A dual lead transvenous cardiac pacer is now noted in place with lead tips in the right atrium and right ventricle respectively. The heart is not enlarged and the pulmonary vasculature is nondilated. The thoracic aorta is tortuous and atherosclerotic. The lungs and pleural spaces are clear. There are mild degenerative changes scattered within the visualized spine. Small calcifications are again noted adjacent to the posterior margin of the right humeral head likely relating to calcific tendinosis. IMPRESSION: NO EVIDENCE OF ACUTE CARDIOPULMONARY DISEASE. DUAL LEAD TRANSVENOUS CARDIAC PACER IN PLACE. JOB NUMBER: [id number] [facility]
== END 2017-11-23 13:13 | disposition home or self-care (01) ==
LOC: ER 11:47
DX: J06.9 Acute upper respiratory infection, unspecified (principal); R05 Cough; R51 Headache
CPT/HCPCS: 71046; 87400; 99283

== ENCOUNTER 2019-08-21 21:46 | Emergency (ER) | payer MEDICARE, OTHER ==
--- NOTE | 2019-08-21 22:19 | Emergency Department Record ---
History of Present Illness - General Chief complaint: Pain Stated complaint: GROIN, LEFT SIDE PAIN Time Seen by Provider: 08/21/19 22:06 Source: Patient Mode of Arrival: Ambulatory Limitations: No limitations - History of Present Illness Initial comments: pt had a sudden onset of significant pain in her l medial thigh and groin. she took a long car ride today. she has a hx of chronic afib. she is worried about blood clots MD Complaint: Extremity pain Onset/Timin -: Hour(s) Location: Left History of Same: No Radiation: Proximal, Distal Severity scale (1-10): 8 Quality: Stabbing Consistency: Constant Improves with: Nothing Worsens with: Palpation, Walking Associated Symptoms: Denies other symptoms - Related Data Allergies Allergy/AdvReac Type Severity Reaction Status Date / Time meperidine Allergy Unknown PT UNSURE Verified 08/21/19 22:05 OF REACTION Opioids-Meperidine and Allergy Unknown PT UNSURE Verified 08/21/19 22:05 Related OF REACTION [Opioids-Meperidine & Related] Travel Screening - Travel/Exposure Within Last 30 Days Have you traveled within the last 30 days?: No - Travel/Exposure Within Last Year Have you traveled outside the [place] in the last year?: No - Additonal Travel Details Have you been exposed to anyone with a communicable illness?: No - Travel Symptoms Symptom Screening: None Review of Systems Reviewed: No additional complaints except as noted below Constitutional: Reports: As per HPI. Denies: Chills, Fever, Malaise, Night sweats, Weakness, Weight change Eyes: Reports: As per HPI. Denies: Eye discharge, Eye pain, Photophobia, Vision change ENT: Reports: As per HPI. Denies: Congestion, Dental pain, Ear pain, Epistaxis, Hearing loss, Throat pain Respiratory: Reports: As per HPI. Denies: Cough, Dyspnea, Hemoptysis, Stridor, Wheezes Cardiovascular: Reports: As per HPI. Denies: Arrhythmia, Chest pain, Dyspnea on exertion, Edema, Murmurs, Orthopnea, Palpitations, Paroxysmal nocturnal dyspnea, Rheumatic Fever, Syncope Endocrine: Reports: As per HPI. Denies: Fatigue, Heat or cold intolerance, Polydipsia, Polyuria Gastrointestinal: Reports: As per HPI. Denies: Abdominal pain, Constipation, Diarrhea, Hematemesis, Hematochezia, Melena, Nausea, Vomiting Genitourinary: Reports: As per HPI. Denies: Abnormal menses, Discharge, Dyspareunia, Dysuria, Frequency, Hematuria, Incontinence, Retention, Urgency Musculoskeletal: Reports: As per HPI. Denies: Arthralgia, Back pain, Gout, Joint swelling, Myalgia, Neck pain Skin: Reports: As per HPI. Denies: Bruising, Change in color, Change in hair/nails, Lesions, Pruritus, Rash Neurological: Reports: As per HPI. Denies: Abnormal gait, Confusion, Headache, Numbness, Paresthesias, Seizure, Tingling, Tremors, Vertigo, Weakness Psychiatric: Reports: As per HPI. Denies: Anxiety, Auditory hallucinations, Depression, Homicidal thoughts, Suicidal thoughts, Visual hallucinations Hematological/Lymphatic: Reports: As per HPI. 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 - NEURO Hx Neuro Disorders: Yes Hx Headaches: Yes Hx Neuropathy: Yes (leg neuropathy- Gabapentin helps) Comment:: balance issues due to familiar tremors in body - GI Hx GI Disorders: Yes Hx Reflux: Yes Hx Ulcer: Yes (duodenal ulcer; in 20s) Hx Wt Loss/Wt Gain: Yes (23 lbs loss-dieting over last year) Hx of Polyps: Yes Comment:: hx ibs and constipation - Hx Genitourinary Disorders: Yes Hx Kidney Stones: Yes Comment:: post menopausal - ENDOCRINE Hx Endocrine Disorders: Yes Hx Diabetes: Yes (insulin dependent) Hx Thyroid Disease: No Comment:: fbs 130 - MUSCULOSKELETAL Hx Musculoskeletal Disorders: Yes Hx Arthritis: Yes Hx Osteoporosis: Yes - PSYCH Hx Psych Problems: Yes Hx Anxiety: Yes (due to illness) - HEMATOLOGY/ONCOLOGY Hx Hematology/Oncology Disorders: Yes Hx Anemia: Yes (younger age) Hx Bruising: Yes (on blood thinner) Comment:: on Eliquis for past 4 months. Family Medical History Any Significant Family History?: No Hx Alcohol Use: Children Hx Anxiety: Children Hx Cancer: Children Hx Depression: Children Hx Diabetes: Mother, Grandparents Hx Heart Disease: Grandparents Hx HTN: Father, Mother, Grandparents Hx Resp Disorders: Father, Grandparents Hx Stroke: Father, Mother, Grandparents Physical Exam - General General Appearance: Alert, Oriented x3, Cooperative, Mild distress - Head Head exam: Normal inspection - Eye Eye exam: Normal appearance, PERRL, EOMI Pupils: Normal accommodation - ENT ENT exam: Normal exam, Mucous membranes moist, Normal external ear exam, Normal orophraynx Ear exam: Normal external inspection. negative: External canal tenderness Nasal Exam: Normal inspection. negative: Discharge, Sinus tenderness Mouth exam: Normal external inspection, Tongue normal Teeth exam: Normal inspection. negative: Dental caries Throat exam: Normal inspection. negative: Tonsillar erythema, Tonsillar exudate - Neck Neck exam: Normal inspection, Full ROM. negative: Tenderness - Respiratory Respiratory exam: Normal lung sounds bilaterally. negative: Respiratory distress - Cardiovascular Cardiovascular Exam: Regular rate, Normal rhythm, Normal heart sounds - GI/Abdominal GI/Abdominal exam: Soft, Normal bowel sounds. negative: Tenderness - Rectal Rectal exam: Deferred - exam: Deferred - Extremities Extremities exam: Full ROM, Normal capillary refill, Tenderness (in the thigh and groin) - Back Back exam: Reports: Normal inspection, Full ROM. Denies: Muscle spasm, Rash noted, Tenderness - Neurological Neurological exam: Alert, CN II-XII intact, Normal gait, Oriented X3 - Psychiatric Psychiatric exam: Normal affect, Normal mood - Skin Skin exam: Dry, Intact, Normal color, Warm Course Vital Signs 08/21/19 21:55 Temperature 98.9 F Pulse Rate 66 Respiratory 20 Rate Blood Pressure 177/80 Pulse Ox 97 Disposition Disposition: Transfer Clinical Impression: Acute thigh pain Qualifiers: Laterality: left Qualified Code(s): M79.652 - Pain in left thigh Disposition: Acute Care Hospital Transfer Transfer To: [facility] Reason For Transfer: needs doppler Accepting Physician: dr crow Time Discussed w/Accepting Physician: 22:19 Quality - Quality Measures Quality Measures: N/A - Blood Pressure Screening Does Patient Have Any of the Following: No Blood Pressure Classification: Pre-Hypertensive BP Reading Systolic Measurement: 177 Diastolic Measurement: 80 Screening for High Blood Pressure: < Pre-Hypertensive BP, F/U Documented > [G8950] Pre-Hypertensive Follow-up Interventions: Follow-up with rescreen every year.
== END 2019-08-21 22:35 | disposition short-term general hospital (02) ==
LOC: ER 21:46
DX: M79.652 Pain in left thigh (principal); I48.20 Chronic atrial fibrillation, unspecified; Z79.01 Long term (current) use of anticoagulants; Z87.891 Personal history of nicotine dependence
CPT/HCPCS: 99283